=== PATIENT | female | born 1960 | race Caucasian/White ===

== ENCOUNTER 2016-07-06 11:41 | Emergency (ER) | payer OTHER ==
[~2016-07-06] VITALS: Ht 157.5 cm; Wt 78.0 kg
[~2016-07-06 11:41] MED LIST: AMBI5TAB PO; HYDR-2768 PO; LORTA5; METHI10 PO; PROP60CA PO; [UNRECOGNIZED DRUG - CODE] PO
[2016-07-06 12:06] VITALS: BP 122/87; PULSE 62; RESP 16; TEMP 98.1; O2SAT 99
[2016-07-06] MEDS ORDERED: LISI-515 PO (12:23)
[2016-07-06] MEDS ORDERED: SYNT112T PO (12:23)
[2016-07-06] MEDS ORDERED: HYDR25TA5 PO (12:23)
[2016-07-06] MEDS ORDERED: ORPH100T99 PO (13:20)
[2016-07-06] MEDS ORDERED: ACET325T PO (13:20)
[2016-07-06] MEDS ORDERED: IBUP-232 PO (13:20)
--- NOTE | 2016-07-06 13:20 | PD ---
HPI Chief Complaint: Back/ Neck Pain or Injury Time Seen by Provider: 13:01 Travel History International Travel<30 days: No Contact w/Intl Traveler<30days: No Traveled to known affect area: No History of Present Illness HPI 54-year-old female coming in with lower back pain which has been persistent over the past week. Patient denies any specific injury, but did ride in a car for prolonged period time feeling very tense, which seemed to start the problem. Patient is been taking intermittent Tylenol ibuprofen and Naprosyn with mild relief. Patient denies sharp pain or radicular pain into the lower extremities. Patient normally uses a treadmill for 4 times a week but hasn't due to the pain. Patient states the pain doesn't seem to bother sleeping but does worsen with ambulation and prolonged standing. She describes it as a dull ache with spasm-like tendencies. Her pain at worst is a 6/10. Patient denies nausea, vomiting, fever, vaginal symptoms or urinary symptoms. She has no allergies other than to sulfa. PFSH Past Medical History Cancer: No Cardiovascular Problems: No Diabetes: No Hepatitis: No Hiatal Hernia: No Hypertension: Yes Medical other: Yes (HX ULCERS) Respiratory: No Thyroid Disease: Yes Influenza Vaccination: Yes ?: Not Past Surgical History Ear Surgery: Yes (LEFT EAR INNER SX) Gynecologic Surgery: Yes (HYSTERECTOMY) Pacemaker: No Other Surgery: Yes Social History Alcohol Use: Yes (OCCAS) Tobacco Use: No Substance Use: No Allergies-Medications (Allergen,Severity, Reaction): Coded Allergies: Sulfa (Verified Allergy, Severe, 07/06/16) Reported Meds & Prescriptions Reported Meds & Active Scripts Active Reported Synthroid (Levothyroxine Sodium) 112 Mcg Tab 117 Mcg PO DAILY Hydrochlorothiazide 25 Mg Tab 25 Mg PO DAILY Lisinopril 20 Mg Tab 20 Mg PO DAILY Review of Systems Except as stated in HPI: all other systems reviewed are Neg General / Constitutional: No: Fever Eyes: No: Visual changes HENT: No: Headaches Cardiovascular: No: Chest Pain or Discomfort Respiratory: No: Shortness of Breath Gastrointestinal: No: Abdominal Pain Genitourinary: No: Dysuria Musculoskeletal: Positive: Myalgias, Arthralgias, Pain, No: Limited ROM, Weakness (see history present illness), Cramping, Edema Skin: No Rash Neurologic: No: Weakness Psychiatric: No: Depression Endocrine: No: Polydipsia Hematologic/Lymphatic: No: Easy Bruising Physical Exam Narrative GENERAL: Patient appears no acute distress. SKIN: Warm and dry. Normal color. Normal turgor. No rash. HEAD: Atraumatic. Normocephalic. EYES: Pupils equal and round. No scleral icterus. No injection or drainage. ENT: No nasal bleeding or discharge. Mucous membranes pink and moist. Airways patent. NECK: Trachea midline. No JVD. Supple and nontender. CARDIOVASCULAR: Regular rate and rhythm. RESPIRATORY: No accessory muscle use. Clear to auscultation. Breath sounds equal bilaterally. GASTROINTESTINAL: Abdomen soft, non-tender, nondistended. Hepatic and splenic margins not palpable. No CVA tenderness. MUSCULOSKELETAL: Extremities without clubbing, cyanosis, or edema. No obvious deformities. Patient has mild muscular tenderness along the lower lumbar spine bilaterally and along the sacroiliac joints bilaterally. Negative straight leg raise pain bilaterally. Patient able to stand on 1 foot without difficulty bilaterally. NEUROLOGICAL: Awake and alert. No obvious cranial nerve deficits. Motor grossly within normal limits. Five out of 5 muscle strength in the arms and legs. Normal speech. PSYCHIATRIC: Appropriate mood and affect; insight and judgment normal. Data Data Last Documented VS Vital Signs Date Time Temp Pulse Resp B/P Pulse Ox O2 Delivery O2 Flow Rate FiO2 07/06/16 12:06 98.1 62 16 122/87 99 MDM Medical Decision Making Medical Screen Exam Complete: Yes Emergency Medical Condition: Yes Differential Diagnosis Sacroiliitis. Muscle spasm. Lumbago. Narrative Course Patient is medically stable at time of exam. Radiographic imaging is not felt to be necessary based on the patient's history and physical. Patient is given ibuprofen 600 mg 4 times a day #40. Patient is given acetaminophen 325 mg 2 tabs 4 times daily #60. Patient is given Norflex 100 mg one every 12 hours when necessary muscle spasms #10. Patient is to do gentle stretching as demonstrated. Follow with primary care physician if symptoms do not improve. Diagnosis Primary Impression: Lumbago syndrome Qualified Code: M54.5 - Acute bilateral low back pain without sciatica Additional Impression: Sacroiliitis Referrals: Primary Care Physician Patient Instructions: Acute Low Back Pain (ED), General Instructions, Sacroiliitis (ED) Additional Instructions: Radiographic imaging is not felt to be necessary based on the patient's history and physical. Patient is given ibuprofen 600 mg 4 times a day #40. Patient is given acetaminophen 325 mg 2 tabs 4 times daily #60. Patient is given Norflex 100 mg one every 12 hours when necessary muscle spasms #10. Patient is to do gentle stretching as demonstrated. Follow with primary care physician if symptoms do not improve. Med/Other Pt SpecificInfo: Prescription(s) given Disposition: 01 DISCHARGE HOME Condition: Stable Williams Day Jul 06, 2016 13:19
== END 2016-07-06 13:34 | disposition home or self-care (01) ==
LOC: PHEFT 11:41
DX: M54.5 Low back pain (principal); M46.1 Sacroiliitis, not elsewhere classified
CPT/HCPCS: 99283